=== PATIENT | female | born 1995 | race Caucasian/White ===

== ENCOUNTER 2022-07-05 09:51 | Emergency (ER) | payer OTHER, SELFPAY ==
--- NOTE | ~2022-07-05 | XR_ITS ---
EXAMINATION: XR shoulder LT min 2V INDICATION: Left shoulder pain TECHNIQUE: Four views of the left shoulder are submitted. COMPARISON: None FINDINGS: Normal alignment. No fracture. Glenohumeral and acromioclavicular joint spaces are normal. Soft tissues are unremarkable. IMPRESSION: 1. No acute osseous abnormality. Reviewed, dictated and finalized at location A.
[2022-07-05 10:05] VITALS: BP 119/71; PULSE 55; RESP 12; TEMP 36.3; O2SAT 100
--- NOTE | 2022-07-05 11:25 | ED.UPPEXIN ---
HPI - Extremity Injury (Upper) General Chief Complaint: Extremity Injury, Upper Stated Complaint: Work Accident, Sore Shoulder Time Seen by Provider: 07/05/22 10:16 History of Present Illness HPI narrative: 27-year-old female presents the emergency room for evaluation of left shoulder pain. Patient states yesterday she fell, landing on her left hip and outstretched left arm. Patient states her pain is located in her AC joint and causes limited range of motion. Has not taking any medications for her symptoms. Related Data Allergies Allergy/AdvReac Type Severity Reaction Status Date / Time lidocaine Allergy Rash Verified 07/05/22 10:25 Review of Systems Review of Systems: CONSTITUTIONAL: Denies fever, chills, or sweats. EYES: Denies visual changes, redness, or discharge. ENT: Denies rhinorrhea, congestion, sore throat, or otalgia. CARDIOVASCULAR: Denies chest pain, palpitations, or edema. RESPIRATORY: Denies cough or dyspnea. GASTROINTESTINAL: Denies abdominal pain, nausea, vomiting, or diarrhea. GENITOURINARY: Denies dysuria or hematuria. SKIN: Denies rash or itching. MUSCULOSKELETAL: Reports left shoulder pain NEUROLOGIC: Denies headache, numbness, dizziness, or weakness. PSYCHIATRIC: Denies anxiety or depression. Exam Narrative: GENERAL: Well-appearing, well-nourished, no physical limitations, and in no acute distress. HEAD: Normocephalic, atraumatic. EYES: Conjunctivae normal, PERRLA and EOMI. CHEST: Clear to auscultation. No respiratory distress. No wheezes rales or rhonchi. No tenderness. HEART: Regular rate and rhythm. No murmur heard. Normal peripheral pulses. EXTREMITIES: Left shoulder: Positive AC shear test, pain in the AC joint, limited range of motion multiple jacob of movement. No soft tissue swelling, ecchymosis or bony abnormality. Neurovascular is intact distally SKIN: Warm, dry, no rash. No noted wounds NEURO: No focal deficits. Alert and oriented x3. MAEW. CN's II-XI intact bilaterally, normal gait PSYCH: Cooperative. Normal mood and affect. Course Vital Signs Vital signs: Vital Signs Temperature 36.3 C L 07/05/22 10:05 Pulse Rate 55 L 07/05/22 10:05 Respiratory Rate 12 07/05/22 10:05 Blood Pressure 119/71 07/05/22 10:05 Pulse Oximetry 100 07/05/22 10:05 Oxygen Delivery Room Air 07/05/22 10:05 Temperature 36.3 C L 07/05/22 10:05 Pulse Rate 55 L 07/05/22 10:05 Respiratory Rate 12 07/05/22 10:05 Blood Pressure 119/71 07/05/22 10:05 Pulse Oximetry 100 07/05/22 10:05 Oxygen Delivery Room Air 07/05/22 10:05 Discharge Plan Discharge Clinical Impression: Acute pain of left shoulder Patient Disposition: Home, Self-Care Condition: Stable Instructions: Antibiotic Form, Shoulder Sprain (ED) Prescriptions: New naproxen 500 mg tablet 500 mg PO BID Qty: 20 0RF Follow-up/Referrals: Pascual Bowers MD [Physician] - [facility],Valorie Heath MD [Primary Care Provider] - Stand Alone Forms: Work/School Release IP Time of Disposition: 11:32
== END 2022-07-05 12:06 | disposition home or self-care (01) ==
PROVIDERS: Emergency Provider Nurse Practitioner Family; PCP Family Medicine
DX: S49.92XA Unspecified injury of left shoulder and upper arm, initial encounter (principal); W19.XXXA Unspecified fall, initial encounter
CPT/HCPCS: 73030; 99283

== ENCOUNTER 2025-03-23 12:25 | Emergency (ER) | payer SELFPAY ==
--- NOTE | ~2025-03-23 | XR_ITS ---
XR ankle LT min 3V, XR foot LT min 3V 03/23/2025 13:02 INDICATION: Status post fall. Left foot and ankle swelling. PROCEDURE: 4 views left ankle and 4 views left foot COMPARISON: No prior studies for comparison. FINDINGS: Fracture, dislocation or subluxation is not identified. Mild diffuse soft tissue swelling o f the ankle. Lisfranc joint intact. No foreign bodies are identified. IMPRESSION: 1: NO ACUTE BONE OR JOINT ABNORMALITY IDENTIFIED. Reviewed, dictated and finalized at location B. IMPRESSION: 1: NO ACUTE BONE OR JOINT ABNORMALITY IDENTIFIED.
--- OUTSIDE RECORDS SUMMARY | 2025-03-23 12:30 | XMS_ITS | Encounter Summary ---
Author Organization [facility] Address [address] [place] [address] Phone Care Team Providers Care Milled Rice Broker Name Role Phone Valorie Peres MD Primary Care Provider [phone] Jhony Tripp MD Primary Care Provider [phone] Valorie Peres MD Primary Care Provider [phone] Jhony Tripp MD Unavailable [phone] Jhony Tripp MD Primary Care Provider [phone] Valorie Peres MD Primary Care Provider [phone] Encounter Details Date Type Department Care Team (Late st Contact Info) Description 05/09/2018 Ophth Exam [facility] Ophthalmology [address] [place] [address] 1[address] [place] [id number] Qing Balderas MD PhD [phone] [address] Social History Tobacco Use Types Packs/Day Years Used Date Smoking Tobacco: Some Days Smokeless Tobacco: Never Comments No Sex and Gender Information Value Date Recorded Sex Assigned at Not on file Legal Sex Female 8:58 AM CDT Gender Identity Female 06/01/2022 9:52 PM CDT Sexual Orientation Bisexual 06/01/2022 9: 52 PM CDT documented as of this encounter Plan of Treatment Not on file documented as of this encounter Visit Diagnoses Not on filedocumented in this encounter Additional Health Concerns Infection Onset Date Last Indicated Resolved Time COVID: Suspected 01/23/2021 01/23/2021 01/24/2021 6:05 AM CDT COVID: Suspected 09/18/2021 09/18/2021 09/19/2021 3:51 AM MANAGER OFFICE COVID19 09/18/2021 09/18/2021 10/02/2021 3:05 AM MANAGER OFFICE COVID: Recovered Comment:Added based on recent COVID infection. 10/02/2021 11/15/2021 01/30/2022 3:05 AM C DT COVID: Suspected 06/12/2022 06/12/2022 06/13/2022 3:05 AM CDT COVID: Suspected 06/12/2022 06/12/2022 06/13/2022 10:43 AM CDT documented as of this encounter Eye Exam Visual Acuity (Near card) Right eye Left eye Dist sc 20/20 20/20 Correction: Contacts Tonometry (Tonopen, 1:10 PM) Right eye Left eye Pressure 11 12 Pupils Pupils Dark Light Shape React APD Right eye PERRL 4 2 Round Brisk None Left eye PERRL 4 2 Round Brisk None Visual Garrett Right eye Left eye Full Full Extraocular Movement Right eye Left eye Up gaze 0 0 0 0 0 0 Right/left gaze 0 -- 0 0 -- -1 Down gaze 0 0 0 0 0 0 15-20 D esotropia on left gaze, incommitant Neuro/Psych Oriented x3: Yes Mood/Affect: Normal Dilation Both eyes: 1.0% Mydriacyl, 2 .5% Phenylephrine @ 1:10 PM External Exam Right eye Left eye External Normal. No proptosis, or ptosis. Normal. No proptosis, or ptosis. Slit Lamp Exam Right eye Left eye Lids/Lashes Normal. No proptosis, or ptosis. Normal. No proptosis, or ptosis. Conjunctiva/Sclera White and quiet White and jenny et Cornea Clear Clear Anterior Chamber Deep and quiet Deep and quiet Iris Round and reactive Round and kelly ctive Lens Clear Clear Vitreous Normal Normal Fundus Exam Right eye Left eye Disc Normal Normal C/D Ratio 0.2 0.2 Macula Normal Normal Vessels Normal Normal Periphery Normal Normal Care Teams Milled Rice Broker Relationship Specialty Start Date End Date Valorie Peres MD PCP - General 05/09/18 06/21/18 Jhony Tripp MD [address] [facility] [address] [place] [address] PCP - General Family Medicine 06/22/18 01/04/19 Valorie Peres MD PCP - General 01/05/19 01/25/21 Jhony Tripp MD [address] [id number] PCP - General 01/26/21 06/04/21 Valorie Peres MD PCP - General 06/05/21 Jhony Tripp MD [address] [facility] [address] [place] [address] Family Medicine 01/05/19 documented as of this encounter
--- OUTSIDE RECORDS SUMMARY | 2025-03-23 12:30 | XMS_ITS | Clinical Summary ---
Author Organization [facility] Virtual Care Address [address] [place] [address] Phone Care Team Providers Care Editorial Assistant Name Role Phone Jhony Tripp MD Unavailable [phone] Valorie Peres MD Primary Care Provider [phone] Allergies Active Allergy Reactions Criticality Noted Date Comments Lidocaine Rash High 10/20/2020 Medications vit 95-yuja-hmehi-dh a 27mg iron- 800 mcg-250 mg capsule Take by mouth Active ibuprofen (ADVIL,MOTRIN) 600 mg tablet Take 1 tablet (600 mg total) by mouth every 6 (six) hours as needed for pain (pain) for up to 30 doses 30 tablet 2 12/14/2021 Active Active Problems Problem Noted Date Diagnosed Date 37 weeks gestation of 12/12/2021 Esotropia 07/04/2018 Assessment & Plan (02/06/2019 1:11 PM CDT): - Patient initially seen in ED 04/26, w suspicion for incomitant ET favoring subtle left cranial nerve (CN) palsy. - In followup 06/27, however, ET comitant and greater at distance than near. - Normal MRI/MRV in 04/2018. Patient says that her PCP did bloodwork to rule out myasthenia gravis and thyroid dysfunction (normal). 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 In clinic today, however, the ET appears comitant on formal alternate cover testing, and is greater at distance than near. - status post (s/p) normal MRI/MRV in 04/2018. Patient says that her PCP did bloodwork to rule out myasthenia gravis and thyroid dysfunction (normal). 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 Sorenson at [facility] for a while (08/21/18), so I recommend that she keep this appointment. If measurements appear stable at that time, and there is no concern for any other secondary cause of the strabismus, could consider prism therapy. Myelinated nerve fibers of optic disc, left 06/11 Assessment & Plan (07/04/2018 12:38 PM CDT): - Benign finding, monitor Resolved Problems Problem Noted Date Diagnosed Date Resolved Date History of seizure 07/04/2018 8 Immunizations Immunization Administration Dates Next Due Influenza, Unspecified 07/20/2021 Pfizer SARS-CoV-2 Monovalent Vaccination (12+ Yrs) PURPLE 06/23/2021,06/01/2021 Social History Tobacco Use Types Packs/Day Years Used Date Smoking Tobacco: Never Smokeless Tobacco: Never AUDIT-C Answer Date Recorded Q1: How often do you have a drink containing alc ohol? Never 12/12/2021 Average Number of Drinks Not on file 022 Frequency of Binge Drinking Not on file 02/2022 [place] Depression Scale Answer Date Recorded [place] Depression Scale Total 11 12/15/2021 The thought of harming myself has occurred to me . Never 12/15/2021 Personal Safety Answer Date Recorded Getting School Help Needed Not on file 04/27 Comments Unknown Sex and Gender Information Value Date Recorded Sex Assigned at Not on file Legal Sex Female 8:58 AM CDT Gender Identity Female 06/01/2022 9:52 PM CDT Sexual Orientation Bisexual 06/01/2022 9: 52 PM CDT Obstetrics History Para Term AB IAB SAB Ectopic Multiple Livin g Live Births 3 1 1 1 1 0 1 1 Date Outcome GA Total Labor Labor/2nd/3rd Weight Sex Type Anes PTL Alondra A1 A5 Name Clin SAB 2021 Term 37w 6d 0h 47m 0h 43m/0h 04m 2.88 kg (6 lb 5.6 oz) M Vag-S pont Epidur al N Livin g 8 9 MAIKEL MILLER, Сергей Wilson MD Complications:None Delivery Location:This [facility] ([facility] Last Filed Vital Signs Vital Sign Reading Time Taken Comments Blood Pressure 119/85 03/26/2023 4:45 PM CDT Pulse 62 03/26/2023 4:45 PM CDT Temperature 36.9 C (98.4 F) 03/26/2023 11:08 AM CDT Respiratory Rate 14 03/26/2023 4:45 PM CDT Oxygen Saturation 99% 03/26/2023 4:45 PM CDT Inhaled Oxygen Concentration - - Weight 72.6 kg (160 lb 0.9 oz) 03/26/2023 11:08 AM CDT Height 170.2 cm (5' 7.01) 03/26/2023 11:08 AM C DT Body Mass Index 25.06 03/26/2023 11:08 AM CDT Plan of Treatment Health Maintenance Due Date Last Done Comments Hepatitis C Screening 1995 Varicella Vaccines (1 of 2 - 13+ 2-dose series) 02/25/2009 Hepatitis B Screening 02/25/2014 Regular Well Visit/Exam 18-64 02/25/2014 Cervical Cancer Screening 01/14/2022 01/14/2021 Depression Screening 12/15/2022 12/15/2021 Covid-19 Vaccine ( season) 2024 06/23/2021, 06/01/2021 Influenza Vaccine (Season Ended) 2025 08/12/2022, 07/20/2021, 10/14/2020, Additional history exists DTaP/Tdap/Td Vaccine (2 - Td or Tdap) 10/08/2025 10/08/2015 HPV Vaccines Aged Out No longer eligi ble based on patient's age to complete this topic Pneumococcal vaccine <65 Aged Out No longer eligible based on patient's age to complete this topic Procedures Procedure Name Priority Date/Time Associated Diagnosis Comments PAP AND HIGH RISK HPV, REFLEX TO GENOTYPING Routine 01/14/2021 12:30 PM CDT from Last 3 Months or Most Recently Relevant to Health Maintenance Results * Pap and High Risk HPV, reflex to Genotyping (01/14/2021 12:30 PM CDT) Pap test 01/14/2021 12:3 0 PM CDT 01/18/2021 1:38 PM CDT Narrative 01/20/2021 2:28 PM CDT [facility] results best viewed via link to PDF [address] [address] Tele: Olga Gonsales MD - Media Production Operator CYTOLOGY REPORT Patient Name: BRISEYDA PARRA Address: [address] [place] [address] Gender: F : 1995 (Age: 25) Service: Laboratory Location: Lab [facility] #: [id number] Patient Type: MB Ref Lab Taken: 01/14/2021 Reported: 01/20/2021 Physician(s): Bal Gan M.D. FINAL DIAGNOSIS: Specimen Type: - ThinPrep Pap and HPV w/ reflex Genotyping Statement of Specimen Adequacy: Source: Cervical/Endocervical - Satisfactory for interpretation - Endocervical /Transformation Zone component present - Case screened using computer assisted imaging technology General Categorization: - Negative for intraepithelial lesion or malignancy Interpretation: - Shift in martinez suggestive of Bacterial Vaginosis - Acute Inflammation jxm/01/20/2021 14:28 MADELIN Machado (ASCP) Report Reviewed and Electronically Signed By MADELIN Machado (ASCP) Clerical Data Follow A; G0145 DIAGNOSIS COMMENT: Ancillary Testing: HPV High Risk Group (16, 18, 31, 33, 35, 39, 45, 51, 52, 56, 58, 59, 66 and 68) - Not Detected Reference Range: Not Detected This test was performed using the GINGER 4800 CLINICAL DIAGNOSIS AND HISTORY Last Menstrual Period: 12/10/2020 Contraceptive History: No Infection History: Chlamydia: 2018 REPORT IMAGES AND/OR SCANNED DOCUMENTS ONLY VIEWABLE IN PDF FORMAT The Pap test is a screening test used to aid in the detection of cervical cancer and its precursors. It should not be the sole means by which malignant and premalignant lesions are diagnosed. Both false negative and false positive results may occur. It also has poor sensitivity for the detection of endometrial lesions and should not be used to evaluate suspected endometrial abnormalities. For these reasons it is most important to obtain Pap tests at regular intervals, as recommended by your physician or nurse practitioner. Bal Gan Jr., MD LAB CYTOLOGY ORDERABL ES Final Result from Last 3 Months or Most Recently Relevant to Health Maintenance Insurance [employer] [facility] [employer]US [employer] Address: [address] [place] [address] [employer] [facility] CHOICE PLUS Advance Directives For more information, please contact: [phone] * Full Code (Latest Code Status on File) Date Activated Date Inactivated Comments 12/13/2021 4:12 PM 12/16/2021 3:14 AM * Full Code Date Activated Date Inactivated Comments 12/12/2021 10:03 PM 12/13/2021 4:12 PM Full CPR in c ase of cardiopulmonary arrest Care Teams Editorial Assistant Relationship Specialty Start Date End Date Valorie Peres MD [address] [facility] [address] [place] [place] [address] PCP - General 06/05/21 Jhony Tripp MD [address] [facility] [address] [place] [address] Family Medicine 01/05/19
--- OUTSIDE RECORDS SUMMARY | 2025-03-23 12:30 | XMS_ITS | Referral Summary ---
Author Organization [facility] Virtual Care Address [address] [place] [address] Phone Care Team Providers Care Hospice Bereavement Coordinator Name Role Phone Jhony Tripp MD Unavailable [phone] Valorie Peres MD Primary Care Provider [phone] Allergies Active Allergy Reactions Criticality Noted Date Comments Lidocaine Rash High 10/20/2020 Medications vit 42-ngcf-bjbxz-dh a 27mg iron- 800 mcg-250 mg capsule [...] has had a new-patient appointment scheduled with Neuro-application operations engineer Dr. Sorenson at [facility] for a while (08/21/18), so I recommend [...] of Binge Drinking Not on file 02/2022 Etta Depression Scale Answer Date Recorded Etta Depression Scale Total 11 12/15/2021 The thought [...] Orientation Bisexual 06/01/2022 9: 52 PM CDT Last Filed Vital Signs Vital Sign Reading [...] 03/26/2023 11:08 AM CDT Plan of Treatment Not on file Procedures Procedure Name Priority Date/Time Associated Diagnosis Comments PAP AND HIGH RISK HPV, REFLEX TO GENOTYPING Routine 01/14/2021 12:30 PM CDT from Last 3 Months or Most Recently Relevant to Health Maintenance Results * Pap and High Risk HPV, reflex to Genotyping (01/14/2021 12:30 PM CDT) Pap test 01/14/2021 12:3 0 PM CDT 01/18/2021 1:38 PM CDT Narrative 01/20/2021 2:28 PM CDT [facility] results best viewed via link to PDF [address] [address] Tele: Olga Gonsales MD - Damage Prevention Coordinator CYTOLOGY REPORT Patient Name: BRISEDYA PARRA Address: [address] [place] [address] 64 Gender: F : 1995 (Age: 25) Service: Laboratory Location: Lab Hospital #: [id number] Patient Type: Ref Lab Taken: 01/14/2021 Reported: 01/20/2021 Physician(s): [...] Recently Relevant to Health Maintenance Insurance [employer]PA [facility] CHOICE PLUS [employer]ANS Address: [address] [place] [address] [employer]PA [facility] CHOICE PLUS Advance Directives For more information, please contact: [phone] * Full Code (Latest Code Status on File) Date Activated Date Inactivated Comments 12/13/2021 4:12 PM 12/16/2021 3:14 AM * Full Code Date Activated Date Inactivated Comments 12/12/2021 10:03 PM 12/13/2021 4:12 PM Full CPR in c ase of cardiopulmonary arrest Care Teams Hospice Bereavement Coordinator Relationship Specialty Start Date End Date Valorie Peres MD [address] [address] PCP - General 06/05/21 Jhony Tripp MD [address] [facility] [address] [place] [address] Family Medicine 01/05/19
[2025-03-23 12:34] VITALS: BP 130/73; PULSE 81; RESP 14; TEMP 36.6; O2SAT 100
--- OUTSIDE RECORDS SUMMARY | 2025-03-23 12:34 | XMS_ITS | Continuity of Care Document ---
Author Organization [facility] Address [address] [place] [address] [place] [phone] Phone Care Team Providers Care Bioinformatics Scientist Name Role Phone Urbano SMART, Mason Unavailable Unavailab le Procedures Procedure Date Therapeutic Exercise Neuromuscular Re-Ed Therapeutic Activities Therapeutic Activities Neuromuscular Re-Ed Therapeutic Exercise Therapeutic Exercise Neuromuscular Re-Ed Therapeutic Activities Therapeutic Exercise Neuromuscular Re-Ed Therapeutic Activities Therapeutic Exercise Neuromuscular Re-Ed Therapeutic Activities Therapeutic Exercise Neuromuscular Re-Ed Therapeutic Activities Therapeutic Exercise Neuromuscular Re-Ed Therapeutic Activities Therapeutic Exercise Neuromuscular Re-Ed Therapeutic Activities Therapeutic Exercise Neuromuscular Re-Ed Manual Therapy Therapeutic Activities Therapeutic Exercise Neuromuscular Re-Ed Manual Therapy Therapeutic Activities Therapeutic Exercise Neuromuscular Re-Ed Manual Therapy Therapeutic Activities Therapeutic Exercise Therapeutic Activities Neuromuscular Re-Ed Manual Therapy Therapeutic Exercise Neuromuscular Re-Ed Therapeutic Activities Manual Therapy Therapeutic Exercise Neuromuscular Re-Ed Manual Therapy Therapeutic Activities Therapeutic Exercise Neuromuscular Re-Ed PT Evaluation Low Complexity Advance Directives Directive Yes / No Effective Date File Name No Information Encounters Encounter Description Practice Location Reason(s) For Visit Diagnoses Date Provider Providers Copied on Encounter [facility] [address] [address], [place], [place], [id number], tel:[phone] [facility] No Information Carlos Cuevas. . Referring Provider: Lexie Mcclure, [address] [place], [address]. tel:[phone] [place] [address], [address] [facility] [address], [place], [place], [id number], tel:[phone] [facility] No Information Micaela Dugan. . Referring Provider: Lexie Mcclure, [address] [place], [address]. tel:[phone] [facility], [address] [address], [place], [place], [id number], [place] tel:[phone] [facility] No Information Carlos Cuevas. . Referring Provider: Lexie Mcclure, [address] [place], [address]. tel:[phone] [facility], [address] [facility] [address], [place], [place], [id number], [place] tel:[phone] [facility] No Information Carlos Rosario . Referring Provider: Lexie Mcclure, [address] [place], [address]. tel:[phone] [facility], [address] [facility], [place], [place], [id number], [place] tel:[phone] [facility] No Information Carlos Rosario . Referring Provider: Lexie Mcclure, [address] [place], [address]. tel:[phone] [facility], [facility] [address] [address], [place], [place], [id number], tel:[phone] [facility] No Information Carlos Rosario . Referring Provider: Lexie Mcclure, [address] [place], [address]. tel:[phone] [facility], [address] [place] [address], [id number], [place] tel:[phone] [facility] No Information Carlos Rosario . Referring Provider: Lexie Mcclure, [address] [place], [address]. tel:[phone] [facility], [address], [id number], [place] tel:[phone] [facility] No Information Carlos Rosario . Referring Provider: Lexie Mcclure, [address] [place], [address]. tel:[phone], [id number], [place] tel:[phone] [facility] No Information Micaela Valdes . Referring Provider: Lexie Mcclure, [address] [place], [address]. tel:[phone] [facility], [address] [place] [address], [place], [id number], [place] tel:[phone] [facility] No Information Carlos Rosario . Referring Provider: Lexie Mcclure, [address] [place], [address]. tel:[phone], [id number], [place] tel:[phone] [facility] No Information Carlos Rosario . Referring Provider: Lexie Mcclure, [address] [place], [address]. tel:[phone], [id number], [place] tel:[phone] [facility] No Information Carlos Rosario . Referring Provider: Lexie Mcclure, [address] [place], [address]. tel:[phone], [id number], [place] tel:[phone] [facility] No Information Carlos Rosario . Referring Provider: Lexie Mcclure, [address] [place], [address]. tel:[phone], [id number], [place] tel:[phone] [facility] No Information Carlos Rosario . Referring Provider: Lexie Mcclure, [address] [place], [address]. tel:[phone], [id number], [place] tel:[phone] [facility] No Information Carlos Rosario . Referring Provider: Lexie Mcclure, [address] [place], [address]. tel:[phone] Family History Family Member Type Diagnosis Age At Onset No Information Payers Payer name Insurance type Covered democrat ID Authorizdeisy anderson(gavino Juarez Bnotes [id number] Social History Type Description Quantity Date Captured Comments Sex Female Smoking Status No Information Chief Complaint And Reason For Visit No Information Reason For Referral Reason For Referral No Information History Of Present Illness Encounter Date Complaint History Of Prese nt Illness No Information Functional Status Date Functional Assessmen t No Information Instructions Date Instruction Additional Infor mation No Information Assessments Type Assessment Date No Information Patient Care Teams Name Effective Dates (start - stop) Status Members No Information
--- OUTSIDE RECORDS SUMMARY | 2025-03-23 12:34 | XMS_ITS | Clinical Summary ---
Author Organization [facility] Address [address] [address] [place] [phone] Phone Care Team Providers Care Assistant Tennis Professional Name Role Phone Unavailable Primary Care Provider Unavailabl e Medications busPIRone (BUSPAR) 7.5 mg Tablet Take 1 Tablet (7.5 mg) by mouth 2 times daily as needed. 30 Tablet 1 03/02/2024 10:02 AM CDT 03/01/2024 Active Encounters Date Type Department Care Team Description 01/08/2025 External Device Data [facility] ABSTRACTION Provider, Abstract from Last 3 Months Social History Tobacco Use Types Packs/Day Years Used Date Smoking Tobacco: Never Assessed Comments Unknown Sex and Gender Information Value Date Recorded Sex Assigned at Not on file Legal Sex Female 2:55 PM CDT Gender Identity Not on file Sexual Orientation Not on file Plan of Treatment Health Maintenance Due Date Last Done Comments DTAP/TDAP/TD VACCINES (1 - Tdap) 02/25/2015 HEPATITIS B VACCINES (1 of 3 - 19+ 3-dose series) 02/25/2015 CERVICAL CANCER SCREENING 02/25/2017 HPV/Cotest (21-29) 02/25/2017 PAP SMEAR 02/25/2017 INFLUENZA VACCINE (#1) 2024 HPV VACCINES Aged Out No longer eligi ble based on patient's age to complete this topic Insurance RX [employer] Member Subscriber Plan / Payer (Ef fective 2024-Present) Name:Briseyda Guzman Relation to Subscriber:Self Name:Briseyda Guzman Subscriber ID:Not on file Payer ID:Not on file Group ID:[id number] Type:RX Commercial Address: [address]
--- NOTE | 2025-03-23 12:47 | ED_ITS ---
HPI - Extremity Injury (Lower) General Chief Complaint: Extremity Injury, Lower Stated Complaint: sprain left ankle Time Seen by Provider: 03/23/25 12:40 Source: patient and RN notes reviewed Mode of arrival: ambulatory Limitations: no limitations History of Present Illness HPI Narrative: 23-year-old female Presents to [facility] complaining of injury to left ankle. Patient reports she was walking down her steps holding her son when she missed a step, rolled her left ankle and fell down 4-5 steps. Patient did hit her head on the door. Patient denies any loss of consciousness, headaches, vision changes, nausea, vomiting, dizziness, or taking any blood thinners. Patient reports having swelling to her left foot and ankle and having a hard time bearing weight on her left foot. Patient's has been taking ibuprofen with relief. Patient denies any numbness, tingling or any other injuries. Patient denies any significant past medical history. Related Data Home Medications ?Medication ?Instructions ?Recorded ?Confirmed ?Last Taken ?Type cetirizine 10 mg tablet (24Hour 10 mg PO DAILY 03/23/25 03/23/25 History Allergy) citalopram 20 mg tablet (Celexa) 20 mg PO DAILY 03/23/25 Unknown History terbinafine 03/23/25 Unknown History Allergies Allergy/AdvReac Type Severity Reaction Status Date / Time Penicillins Allergy Mild Hives Verified 03/23/25 12:41 lidocaine Allergy Rash Verified 03/23/25 12:41 Review of Systems Review of Systems: CONSTITUTIONAL: Denies fever, chills, or sweats. EYES: Denies visual changes, redness, or discharge. ENT: Denies rhinorrhea, congestion, sore throat, or otalgia. CARDIOVASCULAR: Denies chest pain, palpitations, syncope, dizziness, lightheadedness or edema. RESPIRATORY: Denies cough or dyspnea. GASTROINTESTINAL: Denies abdominal pain, nausea, vomiting, or diarrhea. GENITOURINARY: Denies dysuria or hematuria. SKIN: Denies rash, wound, or itching. MUSCULOSKELETAL: Denies back pain, joint pain, or myalgia. Positive for left foot/ankle injury and swelling NEUROLOGIC: Denies headache, numbness, seizures, slurred speech, facial droop, or weakness. PSYCHIATRIC: Denies anxiety or depression. All other systems reviewed are negative, except as documented in HPI. PMFSH Comments At the time of my signature, I reviewed and agree with the nursing past medical, surgical, social, and family history. There is no relevant family history pertinent to the patient complaint. Exam Narrative: GENERAL: This is a well-nourished, well-developed adult, in no apparent distress. They are non ill-appearing, nontoxic appearing. HEAD: normocephalic, atraumatic. No raccoon eyes or Boyer signs. EYES: Sclera clear/white. Vision is grossly intact. Conjunctiva normal. Extraocular movement intact. Pupils PERRLA. EARS: External ears normal Hearing grossly intact. NOSE: External nose normal THROAT: Mucous membranes moist NECK: Neck supple, no cervical point tenderness, crepitus, or step-offs. CARDIOVASCULAR: Regular rate and rhythm RESPIRATORY: Respiratory rate normal, respiratory effort nonlabored, no respiratory distress NEURO: awake, alert, and oriented to person, place and time. There were no obvious focal neurologic abnormalities. EXTREMITIES: Left foot/ankle No obvious deformity. There is swelling and bruising to the dorsal surface of the left foot extending into the anterior left ankle. Limited range of motion due to pain. Patient is able to dorsiflex and plantar flex her left foot. Tenderness to palpation the dorsal proximal surface of left foot and ankle. Capillary refill less than 3 seconds. Left pedal P Pulse 2 +palpable. Normal sensation. Neurovascular status intact distal injury. Patient is able to wiggle her toes. Negative Dove's test. BACK: Nontender without deformity. No thoracic point tenderness or lumbar point tenderness, no crepitus or step-offs. Course Course Emergency Course: Portions of this record may have been created with voice recognition software Level of Care: Express Care Visit Vital Signs Vital signs: Vital Signs Temperature 97.9 F 03/23/25 12:34 Pulse Rate 81 03/23/25 12:34 Respiratory Rate 14 03/23/25 12:34 Blood Pressure 130/73 03/23/25 12:34 Pulse Oximetry 100 03/23/25 12:34 Oxygen Delivery Room Air 03/23/25 12:34 Temperature 97.9 F 03/23/25 12:34 Pulse Rate 81 03/23/25 12:34 Respiratory Rate 14 03/23/25 12:34 Blood Pressure 130/73 03/23/25 12:34 Pulse Oximetry 100 03/23/25 12:34 Oxygen Delivery Room Air 03/23/25 12:34 Reviewed MDM - Extremity Injury (Lower) MDM Narrative Medical decision making narrative: X-ray left foot and left ankle revealed no evidence of fractures or acute findings. Likely patient has a left ankle/foot strain from her fall today. No evidence of head injury. Bates CT head score 0. No CT of brain recommended. Patient given Richard wrap and crutches. Discussed physical exam findings. Advised supportive measures and signs/symptoms to go to the ER. Pt is appropriate for outpt treatment and f/u. Differential Diagnosis Differential diagnosis: Likely ankle sprain and strain, ankle fracture and other (Foot fracture/foot strain) Critical Care Time Critical Care Time Critical Care Time: No Discharge Plan Discharge Clinical Impression: Fall down stairs Qualifiers: Encounter type: initial encounter Qualified Code(s): W10.8XXA - Fall (on) (from) other stairs and steps, initial encounter Injury of left ankle and foot Qualifiers: Encounter type: initial encounter Qualified Code(s): S99.912A - Unspecified injury of left ankle, initial encounter Patient Disposition: Home Condition: Stable Instructions: Ankle Sprain (ED), Foot Sprain (ED) Additional Instructions: Your x-ray of your left ankle and foot are negative for any evidence of fracture or acute findings. It is likely you have stranger left foot/ankle from your fall. Rest and elevate the leg; bear weight as tolerated. You may use crutches as well. Apply ice 15-20 minute intervals several times a day Keep it wrapped with RICHARD or use a soft ankle splint Motrin 600mg -800mg every 8 hours, alternate with Tylenol 1000mg every 8 hours as needed Follow up with your primary care provider or orthopedist and 1-2 weeks if pain is not improving. Patient Language: Djiboutian Prescriptions: No Action cetirizine [24Hour Allergy] 10 mg tablet 10 mg PO DAILY citalopram [Celexa] 20 mg tablet 20 mg PO DAILY terbinafine Follow-up/Referrals: Pascual Bowers MD [Physician] - Larisa,Valorie Heath MD [Primary Care Provider] - Time of Disposition: 13:20
== END 2025-03-23 13:31 | disposition home or self-care (01) ==
PROVIDERS: PCP Family Medicine
DX: S99.912A Unspecified injury of left ankle, initial encounter (principal); S99.922A Unspecified injury of left foot, initial encounter; W10.9XXA Fall (on) (from) unspecified stairs and steps, initial encounter
CPT/HCPCS: 73610; 73630; 99213; G0463